=== PATIENT | female | born 1975 | race Caucasian/White ===

== ENCOUNTER 2019-05-13 15:00 | Emergency (ER) | payer BC ==
[~2019-05-13] VITALS: Ht 157.5 cm; Wt 90.7 kg
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
--- OUTSIDE RECORDS SUMMARY | 2019-05-13 15:03 | XMS REPORT ---
Author Author [facility] Address Unknown Phone Unavailable Care Team Providers Care Reconnaissance Crewmember Name Role Phone Unavailable Unavailable Problems This patient has no known problems. Allergies, Adverse Reactions, Alerts This patient has no known allergies or adverse reactions. Medications This patient has no known medications.
--- NOTE | 2019-05-13 15:39 | Diagnostic Imaging Report ---
History: Left-sided weakness, high blood pressure. Comparison studies: None Technique: Axial images were obtained from the skull base to the vertex. Coronal and sagittal reconstructions obtained from the axial data. Dose modulation, iterative reconstruction, and/or weight based adjustment of the mA/kV was utilized to reduce the radiation dose to as low as reasonably achievable. Findings: Scalp/skull: No abnormalities. No fractures, blastic or lytic lesions. Extra-axial spaces: No masses. No fluid collections. Brain sulci: Prominent sulci at the left posterior frontal convexity, could be related to focal volume loss or arachnoid cyst. The remaining sulci are appropriate for age. Ventricles: Normal in size and configuration. No hydrocephalus. Parenchyma: No abnormal densities. No masses, hemorrhage, acute or chronic cortical vascular insults. Sellar/suprasellar region: No abnormalities Craniocervical junction: Patent foramen magnum. No Chiari one malformation. IMPRESSION: No acute abnormalities . Signed by: DR Justino Hook M.D. on 05/13/2019 3:37 PM
[2019-05-13] MEDS ORDERED: POTASSIUM CHLORIDE 20 MEQ TAB CR PO NR (16:05)
[2019-05-13] MEDS ORDERED: SODIUM CHLORIDE 0.9% 1000ML 1,000 ML IV SCH (16:05)
[2019-05-13] MEDS ORDERED: POTASSIUM CHLORIDE 20 MEQ TAB CR PO ONE (16:13)
[2019-05-13 16:30] VITALS: BP 151/97
== END 2019-05-13 16:39 | disposition home or self-care (01) ==
LOC: FSED 15:00
DX: R20.2 Paresthesia of skin (principal); E86.0 Dehydration; I10 Essential (primary) hypertension
CPT/HCPCS: 70450; 80048; 81003; 85025; 93005; 99284; J7030